=== PATIENT | male | born 1985 | race Caucasian/White ===

== ENCOUNTER 2017-01-14 15:46 | Emergency (ER) | payer MEDICAID ==
[~2017-01-14] VITALS: Ht 170.2 cm; Wt 75.0 kg
[2017-01-14 21:50] VITALS: BP 127/71
== END 2017-01-14 21:50 | disposition home or self-care (01) ==
LOC: ER 15:56
DX: F10.129 Alcohol abuse with intoxication, unspecified (principal); Y90.8 Blood alcohol level of 240 mg/100 ml or more
CPT/HCPCS: 36415; 99283; G0482; Z7610

== ENCOUNTER 2017-01-19 17:33 | Emergency (ER) | payer MEDICAID, OTHER ==
[~2017-01-19] VITALS: Ht 172.7 cm; Wt 80.0 kg
[2017-01-19] MEDS ORDERED: LORAZEPAM 2MG/ML CPJ IM STA (19:30)
[2017-01-19] MEDS ORDERED: OLANZAPINE 10 MG/VIAL IM STA (19:30)
[2017-01-19 19:31] LABS: BASOPHILS % 0.6 % (0.0-2.0); EOSINOPHILS % 1.5 % (0.0-5.0); HEMATOCRIT. 47.7 % (42.0-52.0); HEMOGLOBIN. 16.1 g/dL (14.0-18.0); LYMPHOCYTES % 25.7 % (20.0-50.0); MEAN CORPUSCULAR HEMOGLOBIN 31.3 pg (28.0-32.0); MEAN CORPUSCULAR VOLUME 92.8 fL (80.0-94.0); MEAN PLATELET VOLUME 8.3 fl (7.4-10.4); MONOCYTES % 6.3 % (2.0-8.0); NEUTROPHILS % 65.9 % (40.0-76.0); PLATELET 286 x1000/uL (130-400); RED BLOOD CELL COUNT 5.13 mill/uL (4.7-6.1); RED CELL DISTRIBUTION WIDTH 14.4 % (11.6-14.6)
[2017-01-19 19:35] LABS: CARBON DIOXIDE 24 mEq/L (21-32); CHLORIDE 105 mEq/L (98-107)
[2017-01-19 19:53] LABS: ETHANOL BLOOD 314 mg/dL
[2017-01-19] MEDS ORDERED: ZIPRASIDONE MESYLATE 20MG/VIAL IM STA (22:23)
[2017-01-19] MEDS ORDERED: LORAZEPAM 2MG/ML CPJ IV STA (22:23)
[2017-01-20 05:50] VITALS: BP 118/76
== END 2017-01-20 06:07 | disposition home or self-care (01) ==
LOC: ER 17:45
DX: F10.129 Alcohol abuse with intoxication, unspecified (principal); Y90.8 Blood alcohol level of 240 mg/100 ml or more; Z78.1 Physical restraint status
CPT/HCPCS: 36415; 80053; 85025; 96372; 96374; 99284; G0482; J2060; J3486; J3490; J7030; Z7610

== ENCOUNTER 2017-03-04 16:38 | Emergency (ER) | payer OTHER ==
[~2017-03-04] VITALS: Ht 165.1 cm; Wt 82.0 kg
[2017-03-04 19:16] LABS: CLARITY URINE CLEAR (CLEAR); COLOR URINE YELLOW (YELLOW); GLUCOSE URINE 3+ (NEGATIVE); KETONES URINE NEGATIVE (NEGATIVE); LEUKOCYTE ESTERASE URINE NEGATIVE (NEGATIVE); NITRITE URINE NEGATIVE (NEGATIVE); OCCULT BLOOD URINE NEGATIVE (NEGATIVE); PH URINE 5.5 (4.5-8.0); PROTEIN URINE NEGATIVE (NEGATIVE); SPECIFIC GRAVITY URINE 1.016 (1.005-1.030); UROBILINOGEN URINE 0.2 E.U./dL (0.2-1.0)
[2017-03-04 19:38] LABS: CHLORIDE 102 mEq/L (98-107)
[2017-03-04 19:39] LABS: PROTHROMBIN TIME 10.8 sec (9.4-11.6)
[2017-03-04 19:40] LABS: BASOPHILS % 0.4 % (0.0-2.0); EOSINOPHILS % 1.1 % (0.0-5.0); HEMATOCRIT. 44.8 % (42.0-52.0); HEMOGLOBIN. 15.6 g/dL (14.0-18.0); LYMPHOCYTES % 25.5 % (20.0-50.0); MEAN CORPUSCULAR HEMOGLOBIN 31.5 pg (28.0-32.0); MEAN CORPUSCULAR VOLUME 90.7 fL (80.0-94.0); MEAN PLATELET VOLUME 9.2 fl (7.4-10.4); MONOCYTES % 4.3 % (2.0-8.0); NEUTROPHILS % 68.7 % (40.0-76.0); PLATELET 282 x1000/uL (130-400); RED BLOOD CELL COUNT 4.94 mill/uL (4.7-6.1); RED CELL DISTRIBUTION WIDTH 14.1 % (11.6-14.6)
[2017-03-04 19:47] LABS: CARBON DIOXIDE 21 mEq/L (21-32); ETHANOL BLOOD 295 mg/dL
[2017-03-04 20:51] VITALS: BP 110/87
== END 2017-03-04 20:51 | disposition home or self-care (01) ==
LOC: ER 16:43
DX: F10.10 Alcohol abuse, uncomplicated (principal); Y90.8 Blood alcohol level of 240 mg/100 ml or more; R10.9 Unspecified abdominal pain; R94.5 Abnormal results of liver function studies
CPT/HCPCS: 36415; 80053; 81001; 85025; 85610; 99284; G0482

== ENCOUNTER 2018-08-16 14:02 | Emergency (ER) | payer MEDICAID, OTHER ==
[~2018-08-16] VITALS: Ht 177.8 cm; Wt 80.0 kg
[2018-08-16] MEDS ORDERED: TETANUS, DIPHTHERIA, PERTUSSIS VAC/PF 0.5ML (>7YR OLD) IM ONE (14:30)
[2018-08-16] MEDS ORDERED: HYDROCODONE/ACETAMINOPHEN 5/325MG TABLET PO ONE (14:30)
[2018-08-16] MEDS ORDERED: MORPHINE SULFATE 10 MG/ML CPJ IM ONE ×2 (15:45→16:00)
[2018-08-16] MEDS ORDERED: MORPHINE SULFATE 4 MG/ML CPJ (NOT FOR IM USE) IV ONE (17:30)
[2018-08-16] MEDS ORDERED: CEFAZOLIN 1000MG PREMIX 50 ML IV ONE (17:30)
[2018-08-16 18:20] LABS: BASOPHILS % 0.5 % (0.0-2.0); EOSINOPHILS % 0.1 % (0.0-5.0); HEMATOCRIT. 45.9 % (42.0-52.0); HEMOGLOBIN. 15.7 g/dL (14.0-18.0); LYMPHOCYTES % 17.6 % (20.0-50.0); MEAN CORPUSCULAR HEMOGLOBIN 31.7 pg (28.0-32.0); MEAN CORPUSCULAR VOLUME 92.9 fL (80.0-94.0); MEAN PLATELET VOLUME 9.2 fl (7.4-10.4); MONOCYTES % 10.9 % (2.0-8.0); NEUTROPHILS % 70.9 % (40.0-76.0); PLATELET 281 x1000/uL (130-400); RED BLOOD CELL COUNT 4.94 mill/uL (4.7-6.1); RED CELL DISTRIBUTION WIDTH 13.1 % (11.6-14.6)
[2018-08-16 18:26] LABS: CHLORIDE 101 mEq/L (98-107)
[2018-08-16 18:29] VITALS: BP 127/99
== END 2018-08-16 18:54 | disposition short-term general hospital (02) ==
LOC: ER 14:02
DX: S92.811A Other fracture of right foot, initial encounter for closed fracture (principal); S82.891A Other fracture of right lower leg, initial encounter for closed fracture; X58.XXXA Exposure to other specified factors, initial encounter; Y93.89 Activity, other specified; Y92.89 Other specified places as the place of occurrence of the external cause; Y99.8 Other external cause status
CPT/HCPCS: 36415; 73610; 73630; 80048; 85025; 90471; 90715; 96365; 96372; 96375; 99285; J0690; J2270

== ENCOUNTER 2018-09-22 20:20 | Emergency (ER) | payer MEDICAID ==
[~2018-09-22] VITALS: Ht 172.7 cm; Wt 87.0 kg
[2018-09-23 00:46] VITALS: BP 118/78
== END 2018-09-23 04:25 | disposition home or self-care (01) ==
LOC: ER 20:20
DX: S02.2XXA Fracture of nasal bones, initial encounter for closed fracture (principal); F17.200 Nicotine dependence, unspecified, uncomplicated; F10.129 Alcohol abuse with intoxication, unspecified; Y90.0 Blood alcohol level of less than 20 mg/100 ml; X58.XXXA Exposure to other specified factors, initial encounter; Y93.89 Activity, other specified; Y92.89 Other specified places as the place of occurrence of the external cause; Y99.8 Other external cause status
CPT/HCPCS: 70450; 82962; 99284; Z7610

== ENCOUNTER 2018-09-24 18:28 | Emergency (ER) | payer OTHER, MEDICAID ==
[~2018-09-24] VITALS: Ht 177.8 cm; Wt 90.0 kg
[2018-09-24] MEDS ORDERED: HALOPERIDOL LACTATE 5MG/ML VIAL IM ONE ×2 (18:45→19:45)
[2018-09-24] MEDS ORDERED: LORAZEPAM 2MG/ML CPJ IM ONE (18:45)
[2018-09-24 18:58] LABS: BASOPHILS % 0.5 % (0.0-2.0); EOSINOPHILS % 3.3 % (0.0-5.0); HEMATOCRIT. 51.2 % (42.0-52.0); HEMOGLOBIN. 17.3 g/dL (14.0-18.0); LYMPHOCYTES % 26.5 % (20.0-50.0); MEAN CORPUSCULAR HEMOGLOBIN 31.4 pg (28.0-32.0); MEAN PLATELET VOLUME 9.7 fl (7.4-10.4); MONOCYTES % 7.1 % (2.0-8.0); NEUTROPHILS % 62.6 % (40.0-76.0); PLATELET 245 x1000/uL (130-400); RED CELL DISTRIBUTION WIDTH 13.2 % (11.6-14.6)
[2018-09-24 19:04] LABS: CHLORIDE 104 mEq/L (98-107)
[2018-09-24 19:41] LABS: ETHANOL BLOOD 317 mg/dL
[2018-09-24] MEDS ORDERED: SODIUM CHLORIDE 0.9% 1,000 ML IV ONE (19:45)
[2018-09-24] MEDS ORDERED: INSULIN REGULAR (HUMULIN R) 300UNITS/3ML SUBCUT ONE (20:45)
[2018-09-24 21:03] VITALS: BP 119/85
== END 2018-09-24 21:10 | disposition home or self-care (01) ==
LOC: ER 18:28
DX: T51.0X1A Toxic effect of ethanol, accidental (unintentional), initial encounter (principal); E11.65 Type 2 diabetes mellitus with hyperglycemia; F17.200 Nicotine dependence, unspecified, uncomplicated; Y92.89 Other specified places as the place of occurrence of the external cause
CPT/HCPCS: 36415; 80053; 80307; 80320; 80329; 82962; 85025; 96372; 99283; J1630; J1815; J2060; J7030; Z7610; G0480

== ENCOUNTER 2018-10-22 22:17 | Emergency (ER) | payer MEDICAID, OTHER ==
[~2018-10-22] VITALS: Ht 205.7 cm; Wt 86.0 kg
[2018-10-23] MEDS ORDERED: INSULIN REGULAR (HUMULIN R) 300UNITS/3ML SUBCUT NR (03:15)
[2018-10-23] MEDS ORDERED: SODIUM CHLORIDE 0.9% 1,000 ML IV ONE (03:15)
[2018-10-23 07:05] VITALS: BP 113/68
== END 2018-10-23 07:18 | disposition home or self-care (01) ==
LOC: ER 22:17
DX: F10.129 Alcohol abuse with intoxication, unspecified (principal); E11.65 Type 2 diabetes mellitus with hyperglycemia; F17.200 Nicotine dependence, unspecified, uncomplicated
CPT/HCPCS: 36415; 80320; 82962; 96360; 96361; 96372; 99283; J1815; Z7610; G0480

== ENCOUNTER 2018-10-30 00:11 | Emergency (ER) | payer MEDICAID | END 2018-10-30 02:37 | disposition left against medical advice (07) | LOC: ER 00:11 | DX: F10.129 Alcohol abuse with intoxication, unspecified (principal); Z53.21 Procedure and treatment not carried out due to patient leaving prior to being seen by health care provider; Y90.9 Presence of alcohol in blood, level not specified ==

== ENCOUNTER 2019-03-18 21:43 | Emergency (ER) | payer MEDICAID ==
[~2019-03-18] VITALS: Ht 165.1 cm; Wt 79.0 kg
[2019-03-19 01:11] LABS: CHLORIDE 108 mEq/L (98-107)
[2019-03-19 01:26] LABS: ETHANOL BLOOD 345 mg/dL
[2019-03-19 02:00] VITALS: BP 124/85
== END 2019-03-19 02:22 | disposition home or self-care (01) ==
LOC: ER 21:43
DX: F10.229 Alcohol dependence with intoxication, unspecified (principal); Y90.8 Blood alcohol level of 240 mg/100 ml or more
CPT/HCPCS: 36415; 80048; 80320; 99283; Z7610; G0480

== ENCOUNTER 2019-03-19 02:24 | Emergency (ER) | payer MEDICAID, OTHER | END 2019-03-19 03:31 | disposition left against medical advice (07) | LOC: ER 02:24 | DX: E11.9 Type 2 diabetes mellitus without complications (principal); Z53.21 Procedure and treatment not carried out due to patient leaving prior to being seen by health care provider ==